=== PATIENT | male | born 1985 | race Hispanic/Latino ===

== ENCOUNTER 2019-12-06 12:31 | Emergency (ER) | payer OTHER ==
[2019-12-06 13:15] VITALS: BP 163/84
--- NOTE | 2019-12-06 15:53 | Emergency Department Report ---
ED Fall HPI - General Chief Complaint: Extremity Injury, Upper Stated Complaint: ELBOW/FOOT INJURY Time Seen by Provider: 12/06/19 14:56 Source: patient Mode of arrival: Ambulatory - History of Present Illness Initial Comments: Patient is a 34-year-old male presents emergency room complaints of a fall that occurred yesterday. Patient states that someone ran over his foot with a forklift. He states that he fell and landed on his left elbow. He is complaining of left foot pain and left elbow pain. He has been ambulatory since then without difficulty. He states that his foot has improved but he continues to have pain in the elbow. He denies ever injuring in the past. No numbness or weakness. He denies any past medical history or allergies to medications. - Related Data Allergies Allergy/AdvReac Type Severity Reaction Status Date / Time No Known Allergies Allergy Unverified 12/06/19 13:12 ED Review of Systems ROS: Stated complaint: ELBOW/FOOT INJURY Other details as noted in HPI Comment: All other systems reviewed and negative ED Past Medical Hx - Past Medical History Previous Medical History?: No - Surgical History Past Surgical History?: No ED Physical Exam - General Limitations: No Limitations General appearance: alert, in no apparent distress - Head Head exam: Present: atraumatic, normocephalic - Eye Eye exam: Present: normal appearance - ENT ENT exam: Present: mucous membranes moist - Extremities Exam Extremities exam: Present: other (ttp and edema present to the left posterior e lbow, there is ecchymosis to the left elbow, FROM of the LUE with some discomfort upon flexion of the elbow, no obvious deformity, there is mild ttp over the left medial foot, there is ecchymosis present to the dorsal foot, no obvious deformity, no ttp to the toes or ankle, FROM of the LLE, neurovascularly intact throughout) - Neurological Exam Neurological exam: Present: alert, oriented X3 - Psychiatric Psychiatric exam: Present: normal affect, normal mood - Skin Skin exam: Present: warm, dry ED Course Vital Signs 12/06/19 13:14 Temperature 98.3 F Pulse Rate 65 Respiratory 16 Rate Blood Pressure 163/84 [Right] O2 Sat by Pulse 97 Oximetry ED Medical Decision Making - Radiology Data Radiology results: report reviewed LEFT ELBOW 2 VIEWS INDICATION: Left elbow pain after trauma. COMPARISON: No relevant prior imaging study available. FINDINGS: No acute, displaced fracture, dislocation, or joint effusion. There is mild soft tissue swelling superficial to the olecranon. IMPRESSION: 1. No acute fracture. LEFT FOOT 3 VIEWS INDICATION: Left foot pain after trauma, fall. COMPARISON: No relevant prior imaging study available. FINDINGS: No acute, displaced fracture or dislocation is seen. No foreign bodies. There is mild dorsal soft tissue swelling. IMPRESSION: 1. No acute fracture. Signer Name: Albino Rahman MD Signed: 12/06/2019 3:53 PM Workstation Name: [id number] Transcribed By: KALI Dictated By: Albino Rahman MD Electronically Authenticated By: Albino Rahman MD Signed Date/Time: 12/06/191552 DD/ 50 TD/TT: - Medical Decision Making Patient is a 34-year-old male presents emergency room complaints of a fall that occurred yesterday. Patient states that someone ran over his foot with a forklift. He states that he fell and landed on his left elbow. He is complaining of left foot pain and left elbow pain. He has been ambulatory since then without difficulty. He states that his foot has improved but he continues to have pain in the elbow. He denies ever injuring in the past. No numbness or weakness. He denies any past medical history or allergies to medications. VSS. on exam: ttp and edema present to the left posterior elbow, there is ecchymosis to the left elbow, FROM of the LUE with some discomfort upon flexion of the elbow, no obvious deformity, there is mild ttp over the left medial foot, there is ecchymosis present to the dorsal foot, no obvious deformity, no ttp to the toes or ankle, FROM of the LLE, neurovascularly intact throughout. X-rays were ordered prior to my examination and still pending when I evaluated patient. Advised patient that once his x-rays came back I will discuss with him further, patient was agreeable with plan. Patient eloped from the emergency department prior to receiving x-ray results. I attempted to call number on patient's chart and he did not answer. XR left elbow: 1. No acute fracture. XR left foot: 1. No acute fracture. Appears symptoms most likely related to contusion, patient has full range of motion of the elbow and the foot. He is ambulatory without difficulty. He has eloped prior to receiving his results. - Differential Diagnosis strain, sprain, fx, dislocation, contusion Critical care attestation.: If time is entered above; I have spent that time in minutes in the direct care of this critically ill patient, excluding procedure time. ED Disposition Clinical Impression: Left foot pain, Left elbow pain Disposition: ELOPED Is pt being admited?: No Does the pt Need Aspirin: No Condition: Stable Instructions: Contusion in Adults (ED), Arthralgia (ED) Referrals: PRIMARY CARE, [Primary Care Provider] - 2-3 Days
--- NOTE | 2019-12-06 15:57 | XRay Report ---
LEFT ELBOW 2 VIEWS INDICATION: Left elbow pain after trauma. COMPARISON: No relevant prior imaging study available. FINDINGS: No acute, displaced fracture, dislocation, or joint effusion. There is mild soft tissue swelling supe rficial to the olecranon. IMPRESSION: 1. No acute fracture. LEFT FOOT 3 VIEWS INDICATION: Left foot pain after trauma, fall. COMPARISON: No relevant prior imaging study available. FINDINGS: No acute, displaced fracture or dislocation is seen. No foreign bodies. There is mild dorsal soft tis delfino swelling. IMPRESSION: 1. No acute fracture. Signer Name: Albino Rahman MD Signed: 12/06/2019 3:53 PM Workstation Name: [id number]
== END 2019-12-06 15:51 | disposition left against medical advice (07) ==
LOC: ED 12:31
DX: M79.672 Pain in left foot (principal); M25.522 Pain in left elbow
CPT/HCPCS: 99282